=== PATIENT | male | born 1990 ===

== ENCOUNTER 2025-06-04 16:57 | Inpatient (IN) | payer SELFPAY ==
[2025-06-04 17:21] LABS: BASOPHILS ABSOLUTE AUTO 0.07 K/uL (0.00-0.20); BASOPHILS PERCENT AUTO 0.4 % (0.0-1.0); EOSINOPHILS ABSOLUTE AUTO 0.14 K/uL (0.00-0.45); EOSINOPHILS PERCENT AUTO 0.8 % (0.0-6.0); IMMATURE GRAN ABSOLUTE AUTO 0.11 K/uL (0.00-0.05); IMMATURE GRAN PERCENT AUTO 0.6 % (0.0-0.4); LYMPHOCYTES ABSOLUTE AUTO 2.74 K/uL (1.00-4.80); LYMPHOCYTES PERCENT AUTO 15.8 % (24.0-44.0); MEAN PLATELET VOLUME 10.8 fL (9.4-12.4); MONOCYTES ABSOLUTE AUTO 0.94 K/uL (0.00-0.80); MONOCYTES PERCENT AUTO 5.4 % (0.0-8.0); NEUTROPHILS ABSOLUTE AUTO 13.31 K/uL (1.80-7.70); NEUTROPHILS PERCENT AUTO 77.0 % (41.0-71.0); NRBC ABSOLUTE 0.00 K/uL (0.00-0.02); NRBC PERCENT 0.0 /100WBC (0.0-0.2); PLATELET COUNT,PLT 278 K/uL (150-400); WHITE BLOOD CELL COUNT,WBC 17.31 K/uL (3.9-11.3)
[2025-06-04 17:46] LABS: APPEARANCE,URINE HAZY; GLUCOSE,URINE >=1000 mg/dL (NEGATIVE); OCCULT BLOOD,URINE MODERATE (NEGATIVE)
[2025-06-04 17:53] LABS: EPITHELIAL CELLS,URINE RARE (NONE-FEW)
[2025-06-04 18:03] LABS: SODIUM,NA 128 mmol/L (136-148)
[2025-06-04] MEDS: Iopamidol 755 MG/ML 500 ML Multipack Bottle IVPUSH STA (18:34)
[2025-06-04 18:35] LABS: RED BLOOD CELL COUNT 3.75 M/uL (4.52-5.90)
[2025-06-04 18:40] LABS: A/G RATIO 0.8 (0.9-1.6); BILIRUBIN TOTAL 0.9 mg/dL (0.2-1.0); BLOOD UREA NITROGEN,BUN 5 mg/dL (7.0-18.0); CARBON DIOXIDE,CO2 19.4 mmol/L (21.0-32.0); CHLORIDE,CL 95 mmol/L (98-107); CREATININE 0.8 mg/dL (0.8-1.3); GLUCOSE RANDOM 415 mg/dL (74-106); POTASSIUM,K 3.8 mmol/L (3.5-5.1); PROTEIN TOTAL,TP 7.9 g/dL (6.4-8.2)
[2025-06-04] MEDS: Ondansetron 4 MG/2 ML SDV IVPUSH ONE (18:57)
[2025-06-04 20:25] LABS: ESTIMATED GFR 120 mL/min (>60)
[2025-06-04] MEDS ORDERED: 50% Dextrose in Water 50 ML Syringe IVPUSH PRN ×3 (20:38→23:23)
[2025-06-04 20:41] LABS: ALANINE AMINOTRANSFERASE,ALT <6 IU/L (14-63)
[2025-06-04 20:56] LABS: ASPARTATE AMNIOTRANSFERASE,AST 5 IU/L (15-37)
[2025-06-04] MEDS: Insulin Regular, Human 100 Units/ML 10 ML Vial IVPUSH ONE (21:01)
[2025-06-04 21:39] LABS: CHOLESTEROL HDL 106 mg/dL (40-60)
[2025-06-04 21:43] LABS: CHOLESTEROL TOTAL 609 mg/dL (50-200)
[2025-06-04] MEDS ORDERED: Sodium Chloride 0.9% 2.5 ML Syringe FLUSH PRN (22:00)
[2025-06-04] MEDS ORDERED: Ondansetron 4 MG/2 ML SDV IVPUSH PRN (22:00)
[2025-06-04] MEDS ORDERED: Naloxone 0.4 MG/ML SDV IVPUSH PRN (22:00)
[2025-06-04] MEDS ORDERED: Sodium Chloride 0.9% 10 ML Syringe FLUSH PRN (22:00)
[2025-06-04 23:30] LABS: BLOOD UREA NITROGEN,BUN 3 mg/dL (7.0-18.0); CARBON DIOXIDE,CO2 16.5 mmol/L (21.0-32.0); CHLORIDE,CL 99 mmol/L (98-107); CREATININE 0.6 mg/dL (0.8-1.3); GLUCOSE RANDOM 267 mg/dL (74-106); POTASSIUM,K 3.2 mmol/L (3.5-5.1); SODIUM,NA 132 mmol/L (136-148)
[2025-06-04 23:32] LABS: ESTIMATED GFR 131 mL/min (>60)
[2025-06-04] MEDS: Pantoprazole 40 MG in Sodium Chloride 0.9% 10 ML IVPUSH SCH (23:59)
[2025-06-05 04:07] LABS: BLOOD UREA NITROGEN,BUN 2.0 mg/dL (7.0-18.0); CARBON DIOXIDE,CO2 18.8 mmol/L (21.0-32.0); CHLORIDE,CL 100.0 mmol/L (98-107); CREATININE 0.7 mg/dL (0.8-1.3); EST CRCL DRUG DOSING (CG) 140.33 mL/min; ESTIMATED GFR 125.0 mL/min (>60); GLUCOSE RANDOM 293.0 mg/dL (74-106); POTASSIUM,K 3.3 mmol/L (3.5-5.1); SODIUM,NA 132.0 mmol/L (136-148)
[2025-06-05] MEDS: Dextrose 5%-0.9% NaCl with KCl 1,000 ML IV SCH (04:08)
[2025-06-05 07:49] LABS: BASOPHILS ABSOLUTE AUTO 0.07 K/uL (0.00-0.20); BASOPHILS PERCENT AUTO 0.4 % (0.0-1.0); EOSINOPHILS ABSOLUTE AUTO 0.21 K/uL (0.00-0.45); EOSINOPHILS PERCENT AUTO 1.1 % (0.0-6.0); IMMATURE GRAN ABSOLUTE AUTO 0.15 K/uL (0.00-0.05); IMMATURE GRAN PERCENT AUTO 0.8 % (0.0-0.4); LYMPHOCYTES ABSOLUTE AUTO 3.55 K/uL (1.00-4.80); LYMPHOCYTES PERCENT AUTO 18.8 % (24.0-44.0); MEAN PLATELET VOLUME 10.7 fL (9.4-12.4); MONOCYTES ABSOLUTE AUTO 1.09 K/uL (0.00-0.80); MONOCYTES PERCENT AUTO 5.8 % (0.0-8.0); NEUTROPHILS ABSOLUTE AUTO 13.77 K/uL (1.80-7.70); NEUTROPHILS PERCENT AUTO 73.1 % (41.0-71.0); NRBC ABSOLUTE 0.00 K/uL (0.00-0.02); NRBC PERCENT 0.0 /100WBC (0.0-0.2); PLATELET COUNT,PLT 265 K/uL (150-400); RED BLOOD CELL COUNT 3.70 M/uL (4.52-5.90); WHITE BLOOD CELL COUNT,WBC 18.84 K/uL (3.9-11.3)
[2025-06-05 08:49] LABS: A/G RATIO 0.6 (0.9-1.6); BILIRUBIN TOTAL 0.8 mg/dL (0.2-1.0); BLOOD UREA NITROGEN,BUN 2 mg/dL (7.0-18.0); CARBON DIOXIDE,CO2 18.6 mmol/L (21.0-32.0); CHLORIDE,CL 99 mmol/L (98-107); CREATININE 0.6 mg/dL (0.8-1.3); EST CRCL DRUG DOSING (CG) 163.72 mL/min; GLUCOSE RANDOM 313 mg/dL (74-106); PHOSPHORUS 2.5 mg/dL (2.6-4.7); POTASSIUM,K 3.9 mmol/L (3.5-5.1); PROTEIN TOTAL,TP 6.9 g/dL (6.4-8.2); SODIUM,NA 130 mmol/L (136-148)
[2025-06-05 08:50] LABS: ESTIMATED GFR 131 mL/min (>60)
[2025-06-05 09:18] LABS: ASPARTATE AMNIOTRANSFERASE,AST 13 IU/L (15-37)
[2025-06-05 09:19] LABS: ALANINE AMINOTRANSFERASE,ALT <6 IU/L (14-63)
[2025-06-05 15:20] LABS: BLOOD UREA NITROGEN,BUN 2.0 mg/dL (7.0-18.0); CARBON DIOXIDE,CO2 21.0 mmol/L (21.0-32.0); CHLORIDE,CL 100.0 mmol/L (98-107); CREATININE 0.7 mg/dL (0.8-1.3); EST CRCL DRUG DOSING (CG) 140.33 mL/min; ESTIMATED GFR 125.0 mL/min (>60); GLUCOSE RANDOM 295.0 mg/dL (74-106); POTASSIUM,K 3.6 mmol/L (3.5-5.1); SODIUM,NA 132.0 mmol/L (136-148)
[2025-06-06 06:59] LABS: BASOPHILS ABSOLUTE AUTO 0.06 K/uL (0.00-0.20); BASOPHILS PERCENT AUTO 0.4 % (0.0-1.0); EOSINOPHILS ABSOLUTE AUTO 0.25 K/uL (0.00-0.45); EOSINOPHILS PERCENT AUTO 1.6 % (0.0-6.0); IMMATURE GRAN ABSOLUTE AUTO 0.28 K/uL (0.00-0.05); IMMATURE GRAN PERCENT AUTO 1.8 % (0.0-0.4); LYMPHOCYTES ABSOLUTE AUTO 2.79 K/uL (1.00-4.80); LYMPHOCYTES PERCENT AUTO 17.5 % (24.0-44.0); MEAN PLATELET VOLUME 10.4 fL (9.4-12.4); MONOCYTES ABSOLUTE AUTO 0.83 K/uL (0.00-0.80); MONOCYTES PERCENT AUTO 5.2 % (0.0-8.0); NEUTROPHILS ABSOLUTE AUTO 11.73 K/uL (1.80-7.70); NEUTROPHILS PERCENT AUTO 73.5 % (41.0-71.0); NRBC ABSOLUTE 0.00 K/uL (0.00-0.02); NRBC PERCENT 0.0 /100WBC (0.0-0.2); PLATELET COUNT,PLT 248 K/uL (150-400); RED BLOOD CELL COUNT 3.56 M/uL (4.52-5.90); WHITE BLOOD CELL COUNT,WBC 15.94 K/uL (3.9-11.3)
[2025-06-06 07:45] LABS: A/G RATIO 0.6 (0.9-1.6); BILIRUBIN TOTAL 1.7 mg/dL (0.2-1.0); BLOOD UREA NITROGEN,BUN 2 mg/dL (7.0-18.0); CARBON DIOXIDE,CO2 21.5 mmol/L (21.0-32.0); CHLORIDE,CL 101 mmol/L (98-107); CREATININE 0.7 mg/dL (0.8-1.3); EST CRCL DRUG DOSING (CG) 140.33 mL/min; GLUCOSE RANDOM 288 mg/dL (74-106); POTASSIUM,K 3.6 mmol/L (3.5-5.1); PROTEIN TOTAL,TP 6.9 g/dL (6.4-8.2); SODIUM,NA 136 mmol/L (136-148)
[2025-06-06 07:49] LABS: ESTIMATED GFR 125 mL/min (>60)
[2025-06-06 08:37] LABS: ALANINE AMINOTRANSFERASE,ALT <6 IU/L (14-63)
[2025-06-06 08:46] LABS: ASPARTATE AMNIOTRANSFERASE,AST 12 IU/L (15-37)
[2025-06-06] MEDS: Fenofibrate,Micronized 67 MG Cap PO SCH (12:12)
[2025-06-06] MEDS: Dextrose 5%-0.9% NaCl with KCl 1,000 ML IV SCH (21:19)
[2025-06-07 06:22] LABS: BASOPHILS ABSOLUTE AUTO 0.06 K/uL (0.00-0.20); BASOPHILS PERCENT AUTO 0.5 % (0.0-1.0); EOSINOPHILS ABSOLUTE AUTO 0.19 K/uL (0.00-0.45); EOSINOPHILS PERCENT AUTO 1.7 % (0.0-6.0); IMMATURE GRAN ABSOLUTE AUTO 0.28 K/uL (0.00-0.05); IMMATURE GRAN PERCENT AUTO 2.6 % (0.0-0.4); LYMPHOCYTES ABSOLUTE AUTO 1.72 K/uL (1.00-4.80); LYMPHOCYTES PERCENT AUTO 15.7 % (24.0-44.0); MEAN PLATELET VOLUME 10.7 fL (9.4-12.4); MONOCYTES ABSOLUTE AUTO 0.50 K/uL (0.00-0.80); MONOCYTES PERCENT AUTO 4.6 % (0.0-8.0); NEUTROPHILS ABSOLUTE AUTO 8.21 K/uL (1.80-7.70); NEUTROPHILS PERCENT AUTO 74.9 % (41.0-71.0); NRBC ABSOLUTE 0.02 K/uL (0.00-0.02); NRBC PERCENT 0.2 /100WBC (0.0-0.2); PLATELET COUNT,PLT 255 K/uL (150-400); RED BLOOD CELL COUNT 3.04 M/uL (4.52-5.90); WHITE BLOOD CELL COUNT,WBC 10.96 K/uL (3.9-11.3)
[2025-06-07 07:13] LABS: A/G RATIO 0.5 (0.9-1.6); BILIRUBIN TOTAL 2.4 mg/dL (0.2-1.0); BLOOD UREA NITROGEN,BUN 4.0 mg/dL (7.0-18.0); CARBON DIOXIDE,CO2 24.6 mmol/L (21.0-32.0); CHLORIDE,CL 101.0 mmol/L (98-107); CREATININE 0.6 mg/dL (0.8-1.3); EST CRCL DRUG DOSING (CG) 163.72 mL/min; ESTIMATED GFR 131.0 mL/min (>60); GLUCOSE RANDOM 263.0 mg/dL (74-106); POTASSIUM,K 3.1 mmol/L (3.5-5.1); PROTEIN TOTAL,TP 6.8 g/dL (6.4-8.2); SODIUM,NA 136.0 mmol/L (136-148)
[2025-06-07 07:32] LABS: ASPARTATE AMNIOTRANSFERASE,AST 26.0 IU/L (15-37)
[2025-06-07 07:38] LABS: ALANINE AMINOTRANSFERASE,ALT 3.0 IU/L (14-63)
[2025-06-07] MEDS: NS + KCl 20mEq/L 1,000 ML IV SCH (10:46)
[2025-06-07 21:26] LABS: BLOOD UREA NITROGEN,BUN 7.0 mg/dL (7.0-18.0); CARBON DIOXIDE,CO2 27.1 mmol/L (21.0-32.0); CHLORIDE,CL 101.0 mmol/L (98-107); CREATININE 0.5 mg/dL (0.8-1.3); EST CRCL DRUG DOSING (CG) 196.46 mL/min; GLUCOSE RANDOM 200.0 mg/dL (74-106); POTASSIUM,K 3.4 mmol/L (3.5-5.1); SODIUM,NA 138.0 mmol/L (136-148)
[2025-06-07 21:27] LABS: ESTIMATED GFR 138.0 mL/min (>60)
[2025-06-07] MEDS: Potassium Chloride 20 MEQ Tab.ER PO ONE (22:07)
[2025-06-08 05:21] LABS: BASOPHILS ABSOLUTE AUTO 0.03 K/uL (0.00-0.20); BASOPHILS PERCENT AUTO 0.3 % (0.0-1.0); EOSINOPHILS ABSOLUTE AUTO 0.17 K/uL (0.00-0.45); EOSINOPHILS PERCENT AUTO 1.9 % (0.0-6.0); IMMATURE GRAN ABSOLUTE AUTO 0.37 K/uL (0.00-0.05); IMMATURE GRAN PERCENT AUTO 4.1 % (0.0-0.4); LYMPHOCYTES ABSOLUTE AUTO 2.30 K/uL (1.00-4.80); LYMPHOCYTES PERCENT AUTO 25.3 % (24.0-44.0); MEAN PLATELET VOLUME 10.4 fL (9.4-12.4); MONOCYTES ABSOLUTE AUTO 0.50 K/uL (0.00-0.80); MONOCYTES PERCENT AUTO 5.5 % (0.0-8.0); NEUTROPHILS ABSOLUTE AUTO 5.73 K/uL (1.80-7.70); NEUTROPHILS PERCENT AUTO 62.9 % (41.0-71.0); NRBC ABSOLUTE 0.03 K/uL (0.00-0.02); NRBC PERCENT 0.3 /100WBC (0.0-0.2); PLATELET COUNT,PLT 251 K/uL (150-400); RED BLOOD CELL COUNT 3.06 M/uL (4.52-5.90); WHITE BLOOD CELL COUNT,WBC 9.10 K/uL (3.9-11.3)
[2025-06-08 06:22] LABS: A/G RATIO 0.5 (0.9-1.6); BILIRUBIN TOTAL 1.5 mg/dL (0.2-1.0); BLOOD UREA NITROGEN,BUN 6.0 mg/dL (7.0-18.0); CARBON DIOXIDE,CO2 26.3 mmol/L (21.0-32.0); CHLORIDE,CL 101.0 mmol/L (98-107); CREATININE 0.6 mg/dL (0.8-1.3); EST CRCL DRUG DOSING (CG) 163.72 mL/min; GLUCOSE RANDOM 239.0 mg/dL (74-106); POTASSIUM,K 3.4 mmol/L (3.5-5.1); PROTEIN TOTAL,TP 6.9 g/dL (6.4-8.2); SODIUM,NA 136.0 mmol/L (136-148)
[2025-06-08 06:25] LABS: ESTIMATED GFR 131.0 mL/min (>60)
[2025-06-08 06:55] LABS: ALANINE AMINOTRANSFERASE,ALT 27.0 IU/L (14-63)
[2025-06-08 07:32] LABS: ASPARTATE AMNIOTRANSFERASE,AST 22.0 IU/L (15-37)
[2025-06-08] MEDS: Potassium Chloride 20 MEQ Tab.ER PO ONE (08:13)
[2025-06-08] MEDS ORDERED: 50% Dextrose in Water 50 ML Syringe IVPUSH PRN (19:22)
[2025-06-08] MEDS: Insulin Glargine,Human Rec. Analog 100 Units/ML 3 ML Pen SUBCUT SCH (20:19)
[2025-06-09 06:12] LABS: MEAN PLATELET VOLUME 10.6 fL (9.4-12.4); NRBC ABSOLUTE 0.03 K/uL (0.00-0.02); NRBC PERCENT 0.3 /100WBC (0.0-0.2); PLATELET COUNT,PLT 267 K/uL (150-400); RED BLOOD CELL COUNT 2.76 M/uL (4.52-5.90); WHITE BLOOD CELL COUNT,WBC 10.48 K/uL (3.9-11.3)
[2025-06-09 06:42] LABS: A/G RATIO 0.5 (0.9-1.6); ALANINE AMINOTRANSFERASE,ALT 31.0 IU/L (14-63); ASPARTATE AMNIOTRANSFERASE,AST 21.0 IU/L (15-37); BILIRUBIN TOTAL 1.0 mg/dL (0.2-1.0); BLOOD UREA NITROGEN,BUN 10.0 mg/dL (7.0-18.0); CARBON DIOXIDE,CO2 26.3 mmol/L (21.0-32.0); CHLORIDE,CL 99.0 mmol/L (98-107); CREATININE 0.8 mg/dL (0.8-1.3); EST CRCL DRUG DOSING (CG) 122.79 mL/min; GLUCOSE RANDOM 324.0 mg/dL (74-106); POTASSIUM,K 3.9 mmol/L (3.5-5.1); PROTEIN TOTAL,TP 7.1 g/dL (6.4-8.2); SODIUM,NA 134.0 mmol/L (136-148)
[2025-06-09 06:47] LABS: ESTIMATED GFR 120.0 mL/min (>60)
[2025-06-09 06:52] LABS: BAND ABSOLUTE MAN 0.21; BAND PERCENT MAN 2 %; LYMPHOCYTES ABSOLUTE MAN 1.89 K/uL (1.00-4.80); LYMPHOCYTES PERCENT MAN 18 % (24-44)
[2025-06-09 06:53] LABS: BASOPHILS ABSOLUTE MAN 0.10 K/uL (0.00-0.20); BASOPHILS PERCENT MAN 1 % (0-1); EOSINOPHILS ABSOLUTE MAN 0.21 K/uL (0.00-0.45); EOSINOPHILS PERCENT MAN 2 % (0-6); MONOCYTES ABSOLUTE MAN 0.52 K/uL (0.00-0.80); MONOCYTES PERCENT MAN 5 % (0-8); SEG NEUTROPHILS ABSOLUTE MAN 7.55 K/uL (1.80-7.70); SEG NEUTROPHILS PERCENT MAN 72 % (41-71)
[2025-06-09] MEDS: Magnesium Sulfate 2 GM/50 mL 2 GM in Premix Bag 1 BAG IV ONE (08:11)
[2025-06-09 12:00] LABS: APPEARANCE,URINE CLEAR; GLUCOSE,URINE >=1000 mg/dL (NEGATIVE); OCCULT BLOOD,URINE NEGATIVE (NEGATIVE)
== END 2025-06-09 14:45 | disposition home or self-care (01) | DRG 438 ==
LOC: MW.ED 16:57 → MW.ICU 20:38 → MW.MS 06-08 08:21
PROVIDERS: ADMIT Internal Medicine; ATTEND Internal Medicine
DX: K85.80 Other acute pancreatitis without necrosis or infection (principal); E11.10 Type 2 diabetes mellitus with ketoacidosis without coma; E78.1 Pure hyperglyceridemia; K29.80 Duodenitis without bleeding; E86.0 Dehydration; E83.51 Hypocalcemia; Z88.8 Allergy status to other drugs, medicaments and biological substances
CPT/HCPCS: 36415; 74177; 74177-26; 80048; 80053; 80061; 81001; 81003; 82009; 82947; 83036; 83605; 83690; 83735; 84100; 84478; 85025; 86140; 87040; 96361; 96374; 96375; 99285; 99285-25; A9270-GY; J1815-GY; J2270; J2405; J2470; J3475; J3480; J7030; Q9967